=== PATIENT | male | born 1965 | race Caucasian/White ===

== ENCOUNTER 2018-05-26 10:31 | Emergency (ER) | payer BC ==
[~2018-05-26] VITALS: Ht 172.7 cm; Wt 72.6 kg
[2018-05-26] MEDS ORDERED: TRAM50 PO (12:00)
== END 2018-05-26 12:04 | disposition home or self-care (01) ==
LOC: ER 10:31
DX: S29.9XXA Unspecified injury of thorax, initial encounter (principal); F17.200 Nicotine dependence, unspecified, uncomplicated; W01.198A Fall on same level from slipping, tripping and stumbling with subsequent striking against other object, initial encounter
CPT/HCPCS: 71046; 99283-25